=== PATIENT | female | born 1985 | race Asian ===

== ENCOUNTER → 2018-06-04 | Outpatient (CLI) | payer OTHER | LOC: M SMT 10:56 | PROVIDERS: ATTEND Advanced Practice Midwife | DX: Z34.82 Encounter for supervision of other normal pregnancy, second trimester (principal) ==

== ENCOUNTER → 2018-06-15 | Outpatient (CLI) | payer OTHER ==
--- NOTE | 2018-06-16 03:42 | REP ---
Clinical: Anatomical evaluation. Comparison: None . Findings: Examination demonstrates a single live intrauterine in variable presentation. motion is identified by technologist. Placenta is noted anterior and grade grade zero without evidence for placenta previa or abruption. Amniotic fluid volume is normal. Cervix measures 3.4 cm in length and appears closed. No evidence for nuchal cord. Gestational age by LMP 19 weeks 3 days with HASMUKH 11/06/2018 . Gestational age by current measurements 19 weeks 6 days with HASMUKH 11/03/2018 . FHR equals 132 beats per minute. BPD 4.9 cm 20 weeks 5 days HC 16.9 cm 19 weeks 4 days AC 14.77 20 weeks 0 days FL 2.9 cm 19 weeks 0 days HL 3.1 cm 20 weeks 2 days HC/AC ratio 1.14 Estimated weight 302 grams ( 53rd percentile). Anatomical assessment demonstrates normal structures including cranium, cavum, cerebellum/posterior fossa, facial features, lungs, four-chamber heart/ventricular outflow tracts, diaphragm, stomach, cord insertion/three-vessel cord, kidneys/bladder, spine, and extremities. Bilateral choroid plexus cysts are identified measuring 7 mm on the right and 4 mm on the left. Impression: 1. Single live intrauterine in variable presentation demonstrating appropriate interval growth. 2. Bilateral choroid plexus cysts warrant reevaluation and follow-up. Remainder of the anatomical assessment is complete and normal. Electronically Signed by Bairon Kelley MD 06/16/2018 03:32 A
== END ==
LOC: M RAD 08:15
PROVIDERS: ATTEND Advanced Practice Midwife
DX: Z34.02 Encounter for supervision of normal first pregnancy, second trimester (principal); Z3A.19 19 weeks gestation of pregnancy

== ENCOUNTER → 2018-08-18 | Outpatient (CLI) | payer OTHER ==
[2018-08-18 16:20] LABS: BASO % 0.4 % (0.0-1.0); EOS # 0.3 10^3/uL (0.0-0.50); EOS % 2.8 % (0.0-3.0); HEMATOCRIT 32.3 % (36.0-47.0); HEMOGLOBIN 10.9 g/dl (12.0-15.5); LYMPH # 1.6 10^3/uL (1.5-4.5); LYMPH % 16.4 % (24.0-44.0); MEAN CORPUSCULAR HEMOGLOBIN 32.9 pg (27.0-33.0); MEAN CORPUSCULAR HGB CONC 33.7 g/dl (32.0-36.5); MEAN CORPUSCULAR VOLUME 97.6 fl (80.0-96.0); MONO # 0.6 10^3/uL (0.0-0.8); MONO % 5.8 % (0.0-5.0); NEUTROPHILS # 7.2 10^3/uL (1.8-7.7); NEUTROPHILS % 72.9 % (36.0-66.0); PLATELET COUNT, AUTOMATED 265 10^3/uL (150-450); RED BLOOD COUNT 3.31 10^6/uL (4.00-5.40); WHITE BLOOD COUNT 9.9 10^3/uL (4.0-10.0)
== END ==
LOC: M SMT 13:52
PROVIDERS: ATTEND Advanced Practice Midwife
DX: Z34.02 Encounter for supervision of normal first pregnancy, second trimester (principal)

== ENCOUNTER → 2018-10-08 | Outpatient (CLI) | payer OTHER | LOC: M SMT 09:31 | PROVIDERS: ATTEND Advanced Practice Midwife | DX: Z34.03 Encounter for supervision of normal first pregnancy, third trimester (principal); Z3A.00 Weeks of gestation of pregnancy not specified ==

== ENCOUNTER 2018-11-02 08:29 | Inpatient (IN) | payer OTHER ==
[~2018-11-02] VITALS: Ht 162.6 cm; Wt 67.6 kg
[2018-11-02] VITALS (29 sets, daily range): BP systolic 76–146; BP diastolic 47–86
[2018-11-02] MEDS ORDERED: LR 1,000 ML IV ONE (10:00)
[2018-11-02 10:25] LABS: APPEARANCE, URINE CLOUDY (CLEAR); BACTERIA, URINE AUTO 1+ (NEGATIVE); BILIRUBIN, URINE AUTO NEGATIVE (NEGATIVE); BLOOD, URINE BLOOD 3+ (NEGATIVE); COLOR, URINE AMBER (YELLOW); GLUCOSE, URINE (UA) AUTO NEGATIVE (NEGATIVE); KETONE, URINE AUTO TRACE mg/dL (NEGATIVE); LEUKOCYTE ESTERASE, URINE AUTO 2+ (NEGATIVE); MUCUS, URINE SMALL (NEGATIVE); NITRITE, URINE AUTO NEGATIVE (NEGATIVE); PROTEIN, URINE AUTO 2+ mg/dL (NEGATIVE); RBC, URINE AUTO 73 /HPF (0-3); SPECIFIC GRAVITY URINE AUTO 1.026 (1.002-1.035); SQUAMOUS EPITHELIAL CELL UR AU 6 /HPF (0-6); UROBILINOGEN, URINE AUTO 0.2 mg/dL (0.0-2.0); WBC, URINE AUTO 20 /HPF (0-3)
[2018-11-02 10:26] LABS: HEMATOCRIT 38.4 % (36.0-47.0); HEMOGLOBIN 13.2 g/dl (12.0-15.5); MEAN CORPUSCULAR HGB CONC 34.4 g/dl (32.0-36.5); PLATELET COUNT, AUTOMATED 246 10^3/uL (150-450); WHITE BLOOD COUNT 18.9 10^3/uL (4.0-10.0)
[2018-11-02] MEDS: LR 1,000 ML IV SCH ×2 (10:41→18:50)
--- NOTE | 2018-11-02 10:48 | HPE ---
DATE OF ADMISSION: 11/02/2018 CHIEF COMPLAINT: Contractions. HISTORY OF PRESENT ILLNESS: Richie Olson is a 32-year-old G1, P0-0-0-0, at 39.3 weeks' gestation by last menstrual period of 01/30/2018, confirmed by first-trimester ultrasound with an estimated date of delivery of 11/06/2018, who is presenting to labor and delivery complaining of contractions. She states that the contractions started at 3 a.m. this morning. They have been about every 5-7 minutes and last about 1 minute. She states that she thinks she had some leakage of fluid at about midnight. She is also experiencing some nausea. She is feeling the baby move, and her only discharge is slightly mucusy with a little bit of bloody show. She initiated care with [facility] in the first trimester and has been compliant with her care. LABORATORIES: Blood type is B positive. Antibody screen negative. Blood pressures have been ranging 92-110 systolic over 58-68 diastolic in the office. Total weight gain is approximately 30 pounds this . She is group B streptococcus (GBS) negative, rubella immune, HIV negative, gonorrhea negative, chlamydia negative, hepatitis B surface antigen negative, [facility] ([facility]) nonreactive. Diabetes screen was negative with a sugar of 118. OBSTETRICAL ULTRASOUND: Has shown a single intrauterine with an anterior placenta. PAST OBSTETRICAL HISTORY: None. PAST MEDICAL HISTORY: History of chicken pox. MEDICATIONS: - prenatals - Zantac - vitamin B6 PAST SURGICAL HISTORY: Appendectomy and rhinoplasty. ALLERGIES: Seasonal. No known drug allergies. SOCIAL HISTORY: The patient is . Denies tobacco, alcohol, or drug use. PHYSICAL EXAMINATION: Temperature is 98.5, pulse is 82 and regular, respiratory rate is 15 and unlabored, blood pressure is 112/70. Abdomen: Gravid. Nirav maneuver shows the baby is vertex. Sterile vaginal examination: 4 cm dilated, 100% effaced, -1 station. monitor shows a baseline of 135 beats per minute with moderate variability, category 1 tracing. Tocometer: Contractions every 5-7 minutes that last about 50 seconds. ASSESSMENT AND PLAN: This is a 32-year-old G1, P0 female at 39.3 weeks' gestation in active labor. She is ruptured. She is GBS negative and so does not need antibiotics. status is reassuring. Admit to labor and delivery with routine laboratories and orders. Anticipate normal spontaneous vaginal delivery.
[2018-11-02] MEDS ORDERED: FENTANYL 2MCG/ML ROPIVACAINE 0.2% IN 0.9% NACL 100ML IVBAG As Ordered ONE (10:53)
[2018-11-02] MEDS: FENTANYL/ROPIVACAINE/NACL BAG 100 ML EPIDURAL SCH ×2 (11:37→18:29)
[2018-11-02] MEDS ORDERED: ePHEDrine SULFATE 25 MG/5 ML(5MG/ML) SYRINGE IV PRN (12:15)
[2018-11-02] MEDS ORDERED: NALOXONE INJ 0.4 MG/1 ML VIAL (J2310) IV PRN (12:15)
[2018-11-02] MEDS ORDERED: EPIDURAL COMMENT XX SCH (12:15)
[2018-11-02] MEDS ORDERED: diphenhydrAMINE INJ 50MG/ML VIAL (J1200) IV PRN (12:15)
[2018-11-02] MEDS ORDERED: REFRIGERATOR IV KEYS XX PRN (12:15)
[2018-11-02] MEDS ORDERED: ONDANSETRON 4MG/2ML VIAL (J2405) IV PRN (12:15)
[2018-11-02] MEDS ORDERED: EPIDURAL/PCA KEYS XX PRN (12:15)
[2018-11-02] MEDS ORDERED: LACTATED RINGER'S 1000 ML IV PRN (12:15)
--- NOTE | 2018-11-02 16:04 | IPNPDOC ---
Text Note Date of Service The patient was seen on 11/02/18. NOTE S: Patient comfortable with epidural, no urge to push. O: Vitals stable SVE: AL/100/0 FHR: 160 bpm, moderate variability, cat 1 tracing TOCO: CTX q2-6 min A/P: 32 yo at 39.3 EGA in active labor - status reassuring -comfortable with epidural -anticipate VS,Fishbone, I+O VS, Fishbone, I+O Laboratory Tests 11/02/18 10:04 Red Blood Count 4.00, Mean Corpuscular Volume 96.0, Mean Corpuscular Hemoglobin 33.0, Mean Corpuscular Hemoglobin Concent 34.4, Red Cell Distribution Width 12.9 Vital Signs Date Time Temp Pulse Resp B/P (MAP) Pulse Ox O2 Delivery O2 Flow Rate FiO2 11/02/18 14:58 79 16 109/53 (71) 11/02/18 13:57 98.7 GME ATTESTATION GME ATTESTATION My faculty preceptor for this patient encounter was physically present during th e encounter and was fully available. All aspects of the patient interview, examination, medical decision making process, and medical care plan development were reviewed and approved by the faculty preceptor. The faculty preceptor is aware and concurs with the plan as stated in the body of this note and will attest to such by his/her cosignature. HUMAIRA CORONADO DO Nov 02, 2018 16:03
[2018-11-02] MEDS ORDERED: OXYTOCIN DRIP 30 UNITS in APPROPRIATE DILUENT 1 EA IV SCH ×2 (17:45→23:47)
[2018-11-02] MEDS ORDERED: UNASYN 3 GM VIAL As Ordered ONE (21:23)
[2018-11-02] MEDS ORDERED: ACETAMINOPHEN 500 MG TAB PO ONE (21:30)
[2018-11-02] MEDS ORDERED: AMPICILLIN SOD/SULBACTAM SOD 3 GM in D5W MINI-BAG PLUS 100 ML IV SCH (21:30)
[2018-11-02] MEDS ORDERED: LR 1,000 ML IV SCH (23:47)
[2018-11-03] MEDS ORDERED: ONDANSETRON 4MG/2ML VIAL (J2405) IV PRN
[2018-11-03] MEDS ORDERED: IBUPROFEN 600 MG TAB PO PRN
[2018-11-03] MEDS ORDERED: PROMETHAZINE 25 MG TAB PO PRN
[2018-11-03] MEDS ORDERED: ACETAMINOPHEN TAB 650MG DOSE (2X325MG) PO PRN
[2018-11-03] MEDS ORDERED: DIBUCAINE 1% OINTMENT 30GM TOP PRN
[2018-11-03] MEDS ORDERED: DOCUSATE SODIUM 100 MG CAP PO PRN
[2018-11-03] MEDS ORDERED: RHOGAM 300 MCG (1500 IU) INJ (J2790) IM SCH
[2018-11-03] MEDS ORDERED: MEASLES,MUMPS,RUBELLA VACCINE INJ (MMR-II) (90707) SC SCH
[2018-11-03] MEDS ORDERED: ACETAMINOPHEN 500 MG TAB PO PRN
[2018-11-03] MEDS ORDERED: IBUPROFEN 800 MG TAB PO PRN
[2018-11-03 00:16] LABS: CORD GAS ABE V -6.6; CORD GAS HCO3 V 18.7 MEQ/L; CORD GAS O2 SAT V 85.2 %; CORD GAS PCO2 V 37.3 mmHg; CORD GAS PH V 7.319 UNITS; CORD GAS PO2 V 39.6 mmHg; CORD GAS SBC V 18.9 MEQ/L; CORD GAS TCO2 V 19.9 MEQ/L
[2018-11-03 00:17] LABS: CORD GAS ABE A -8.9; CORD GAS HCO3 A 19.4 MEQ/L; CORD GAS O2 SAT A 72.4 %; CORD GAS PCO2 A 50.2 mmHg; CORD GAS PH A 7.205 UNITS; CORD GAS PO2 A 34.7 mmHg; CORD GAS TCO2 A 20.9 MEQ/L
[2018-11-03] MEDS ORDERED: diphenhydrAMINE 25 MG CAP As Ordered ONE (00:59)
[2018-11-03] MEDS ORDERED: diphenhydrAMINE 25 MG CAP PO ONE (01:00)
[2018-11-03 02:10] VITALS: BP 97/54
[2018-11-03 06:04] VITALS: BP 103/53
[2018-11-03 06:56] LABS: HEMATOCRIT 29.6 % (36.0-47.0); MEAN CORPUSCULAR HEMOGLOBIN 32.5 pg (27.0-33.0); MEAN CORPUSCULAR HGB CONC 34.1 g/dl (32.0-36.5); MEAN CORPUSCULAR VOLUME 95.2 fl (80.0-96.0); PLATELET COUNT, AUTOMATED 195 10^3/uL (150-450); RED BLOOD COUNT 3.11 10^6/uL (4.00-5.40); WHITE BLOOD COUNT 28.1 10^3/uL (4.0-10.0)
[2018-11-03 07:00] LABS: HEMOGLOBIN 10.1 g/dl (12.0-15.5)
[2018-11-03] MEDS: PRENATAL VITAMINS CHEWABLE TABLET PO SCH (10:09)
[2018-11-03 10:10] VITALS: BP 110/57
[2018-11-03 14:06] VITALS: BP 107/52
[2018-11-03 18:09] VITALS: BP 111/67
[2018-11-03 22:00] VITALS: BP 103/64
[2018-11-04 02:00] VITALS: BP 81/45
[2018-11-04 05:30] VITALS: BP 85/50
--- NOTE | 2018-11-04 07:37 | IPNPDOC ---
Text Note Date of Service The patient was seen on 11/04/18. NOTE Note PPD#1 s/p S: Pain well controlled, ambulating without difficulty, tolerating regular diet, voiding spontaneously, lochia decreasing/minimal. No headache, sob, chest pain, nausea/vomiting/fevers/chills. O: Normotensive, normal HR, afebrile ABD: soft, nontender, nondistended, fundus firm at U Ext: no lower extremity edema bilaterally, negative Shubham's sign A/P: PPD#1. Recovering well. Hemodynamically stable, afebrile, good pain control. Baby in NICU -Routine care -Anticipate d/c to home tomorrow. VS,Fishbone, I+O VS, Fishbone, I+O Vital Signs Date Time Temp Pulse Resp B/P (MAP) Pulse Ox O2 Delivery O2 Flow Rate FiO2 11/04/18 05:30 98.1 65 16 85/50 (62) 11/03/18 06:04 98 GME ATTESTATION GME ATTESTATION My faculty preceptor for this patient encounter was physically present during the encounter and was fully available. All aspects of the patient interview, examination, medical decision making process, and medical care plan development were reviewed and approved by the faculty preceptor. The faculty preceptor is aware and concurs with the plan as stated in the body of this note and will attest to such by his/her cosignature. HUMAIRA CORONADO DO Nov 04, 2018 07:37
[2018-11-04] MEDS: PRENATAL VITAMINS CHEWABLE TABLET PO SCH (09:38)
[2018-11-04 10:00] VITALS: BP 103/70
[2018-11-04 14:00] VITALS: BP 109/68
== END 2018-11-04 14:36 | disposition home or self-care (01) | DRG 807 ==
LOC: M LDO 08:29 → M LDI 09:31 → M OBS 11-03 01:52
PROVIDERS: ADMIT Obstetrics & Gynecology; ATTEND Obstetrics & Gynecology
PROC: 10E0XZZ Delivery of Products of Conception, External Approach (ICD-10-PCS; principal; 2018-11-03)
PROC: 0KQM0ZZ Repair Perineum Muscle, Open Approach (ICD-10-PCS; 2018-11-03)
DX: O41.1230 Chorioamnionitis, third trimester, not applicable or unspecified (principal); Z37.0 Single live birth; Z3A.39 39 weeks gestation of pregnancy; O70.1 Second degree perineal laceration during delivery

== ENCOUNTER 2020-05-18 11:20 | Day surgery (SDC) | payer OTHER ==
[~2020-05-18] VITALS: Ht 157.5 cm; Wt 59.0 kg
[~2020-05-18 11:20] MED LIST: ACETAMINOPHEN 1000MG 100ML IV BTL (OFIRMEV) (J0131 PER 10MG) As Ordered ONE; KETOROLAC 60MG 2ML VIAL As Ordered ONE; LIDOCAINE 2% 100MG/5ML SDV (FOR ANES.) As Ordered ONE; METOCLOPRAMIDE INJ 10MG/2ML VIAL (J2765 PER 1) As Ordered ONE; MIDAZOLAM INJ 2MG/2ML VIAL (J2250 PER 1MG) As Ordered ONE; ONDANSETRON 4MG/2ML VIAL As Ordered ONE; PHENYLephrine 500MCG 5ML (100MCG/ML) SYRINGE As Ordered ONE; PREN1TAB9 PO; dexameTHASONE 4 MG/ML 1ML VIAL (J1100 PER 1MG) As Ordered ONE; ePHEDrine SULFATE 25 MG/5 ML(5MG/ML) SYRINGE As Ordered ONE; fentaNYL 100 MCG/2 ML INJECTION (J3010) As Ordered ONE; propofoL 200 MG/20 ML VIAL As Ordered ONE
[2020-05-18 13:44] LABS: HEMATOCRIT 33.3 % (36.0-47.0); HEMOGLOBIN 11.6 g/dl (12.0-15.5); MEAN CORPUSCULAR HEMOGLOBIN 32.7 pg (27.0-33.0); MEAN CORPUSCULAR HGB CONC 34.8 g/dl (32.0-36.5); MEAN CORPUSCULAR VOLUME 93.8 fl (80.0-96.0); PLATELET COUNT, AUTOMATED 237 10^3/uL (150-450); RED BLOOD COUNT 3.55 10^6/uL (4.00-5.40); WHITE BLOOD COUNT 5.1 10^3/uL (4.0-10.0)
[2020-05-18] MEDS ORDERED: METHYLERGONOVINE MALEATE 0.2 MG/ML VIAL (J2210) As Ordered ONE (14:32)
--- NOTE | 2020-05-18 15:00 | ROOPDOC ---
[facility], [place] Report Of Operation Report of Operation DATE OF PROCEDURE: 05/18/20 PREPROCEDURE DIAGNOSES: embryonic demise, 8-9 weeks. POSTPROCEDURE DIAGNOSES: same. PROCEDURE: D+E+C. SURGEON: Benoit Young MD ANESTHESIA: general via LMA. ESTIMATED BLOOD LOSS: Approximately 1000 mL. URINE OUTPUT: 500 ml COMPLICATIONS: uterine atony with hemorrhage. FINDINGS: Moderate POC's, retroverted uterus. PROCEDURE NOTE: The patient was taken to the operating room where LMA anesthesia was induced. She was prepped and draped in sterile fashion in the dorsal lithotomy position. The bladder was emptied with a catheter. A speculum was placed in the vagina. The anterior lip of the cervix was grasped with a tenaculum. The cervix was dilated with tapered dilators. A #9 mm suction curette was placed through the internal os. Suction device was activated and curette was gently rotated until products of conception were noted coming through the suction tubing. Sharp curettage performed. A large amount of bleeding due to uterine atony was encountered. Repeat suction was performed. Speculum was removed and bimanual fundal massage was performed. Patient received 0.2 g of Methergine IM. She also received 800 g of Cytotec per rectum. Over time uterus became firm and the bleeding subsided. All instruments were removed. Sponge and instrument counts were correct. The patient went to the recovery room in stable condition. BENOIT YOUNG MD May 18, 2020 15:00
[2020-05-18] MEDS ORDERED: ONDANSETRON 4MG/2ML VIAL IV PRN (15:10)
[2020-05-18] MEDS ORDERED: fentaNYL 100 MCG/2 ML INJECTION (J3010) IV PRN (15:10)
[2020-05-18] MEDS ORDERED: LR 1,000 ML IV SCH ×2 (15:10)
[2020-05-18] MEDS ORDERED: DOXYCYCLINE HYCLATE 100MG TABLET PO ONE (15:15)
[2020-05-18 16:12] VITALS: BP 109/53
[2020-05-18] MEDS ORDERED: ACETAMINOPHEN 500 MG TAB PO ONE (21:00)
[2020-05-19] MEDS ORDERED: LR 1,000 ML IV ONE (07:00)
== END 2020-05-18 16:20 | disposition home or self-care (01) ==
LOC: M SDC 11:20
PROVIDERS: ATTEND Specialist
DX: O02.1 Missed abortion (principal)
CPT/HCPCS: 36415; 59820; 85027; 86850; 86900; 86901; 88305; J0131; J1100; J1885; J2210; J2250; J2370; J2405; J2765; J3010